=== PATIENT | female | born 1985 | race African-American/Black ===

== ENCOUNTER 2021-01-02 10:05 | Outpatient (CLI) | payer BC, SELFPAY ==
[2021-01-02 10:38] LABS: Hematocrit 45.8 % (37.0-47.0); Hemoglobin 14.7 g/dL (12.0-15.0); Mean Corpuscular HGB Conc 32.1 g/dl (32-36); Mean Corpuscular Hemoglobin 27.4 pg (26-34); Mean Corpuscular Volume 85.3 fl (80-100); Mean Platelet Volume 10.8 fl (7.4-10.4); Platelet Count Result 242 k/mm3 (150-375); Red Blood Count 5.37 M/mm3 (4.2-5.4); Red Cell Distribution Width 13.3 % (11.5-14.5); White Blood Count 7.2 K/mm3 (4.5-10.0)
== END 2021-01-02 10:06 | disposition home or self-care (01) ==
PROVIDERS: Visit Provider Student in an Organized Health Care Education/Training Program
DX: N92.0 Excessive and frequent menstruation with regular cycle (principal)
CPT/HCPCS: 36415; 85027

== ENCOUNTER 2021-02-08 07:57 | Outpatient (CLI) | payer BC, SELFPAY | END 2021-02-08 07:58 | disposition home or self-care (01) | LOC: ANHLAB 08:00 | PROVIDERS: Visit Provider Student in an Organized Health Care Education/Training Program | DX: Z01.818 Encounter for other preprocedural examination (principal); N92.0 Excessive and frequent menstruation with regular cycle | CPT/HCPCS: 36415; 86850; 86900; 86901 ==

== ENCOUNTER 2021-02-09 01:10 | Day surgery (SDC) | payer BC, SELFPAY ==
[2021-02-06 17:53] VITALS: BMI 32.2
--- NOTE | 2021-02-08 14:34 | WPDANESEPPF ---
Anes - Initial Pre Proc Eval Procedure: Operation Date: 02/09/21 07:30 Proposed Procedures p Laparoscopic Assisted Vaginal Hysterectomy, Bilateral Salpingectomy - Siobhan Dorantes MD Date/Time: 02/08/21 14:34 Surgeon: Siobhan Dorantes MD Pre Op Diagnosis: menorrhaghia Patient Data Age: 35 Gender: F Height: 1.7 m Weight: 93.44 kg Allergies Allergy/AdvReac Type Severity Reaction Status Date / Time No Known Allergies Allergy Verified 01/30/21 09:39 Home Medications Medication Instructions Recorded Confirmed Type cetirizine 10 mg capsule 20 mg PO DAILY cap 10/20/20 02/09/21 History ferrous sulfate 325 mg (65 mg 325 mg PO DAILY 10/20/20 02/09/21 History iron) tablet,delayed release folic acid 20 mg capsule 20 mg PO DAILY 10/20/20 02/09/21 History levothyroxine 200 mcg capsule 200 mcg PO DAILY 10/20/20 02/09/21 History vitamin B complex 1 tablet PO DAILY 10/20/20 02/09/21 History mometasone-formoterol [Dulera] 2 inh INHALATION DAILY 02/06/21 02/09/21 History Patient hx anesthesia problems: none Family hx anesthesia problems: none PMFSH Past Medical History Medical History Anemia Asthma History of use of contraceptive intrauterine device (IUD) inserted 2019 removed 2019 Hypothyroidism Irregular menses Obesity Surgical History Surgical History History of dilation and curettage History of endometrial ablation Family History Family History Mother Diabetes mellitus Hypertension Social History Social History Years smoked: 6 Smoking status: Current every day smoker Tobacco type: cigarettes Alcohol intake: never Drinks per week: 4 Substance use: never Substance use type: marijuana Spiritual care concerns: No Anes - Eval Final PreProcedure Day of Procedure 02/08/21 14:34 Patient weight: obese Heart: regular rate and rhythm Lungs: clear to auscultation and normal air movement Airway: Mallampati scale class II Neurological: alert and oriented Last oral intake: >/= 8 hours ASA classification: II Emergent: no Anesthetic plan: proceed Anesthesia type and monitoring: general ETT Informed Consent: The patient's anesthetic plan and its attendant risks and benefits were discussed with the patient/family/POA. Questions were solicited and answers provided to the satisfaction of the patient/family/POA.
--- NOTE | 2021-02-08 16:29 | PM.IMHP ---
H&P: HPI History of Present Illness Date/Time: 02/08/21 16:29 Patient is 35yo nulligravid woman with a long history of abnormal uterine bleeding who presents for a scheduled hysterectomy. Patient has failed multiple medical and other surgical modalities, inc. OCPs, IUD, and endometrial ablation. She has also had severe anemia in the past due to menorrhagia requiring multiple blood transfusion and iron transfusions. Patient does not desire future fertility. She desires definitive surgical management with a hysterectomy. In general, patient reports feeling well today without complaints. Chief Complaint: Abnormal uterine bleeding Review of Systems Review of Systems: All systems reviewed & are unremarkable except as noted in HPI and below Constitutional: Constitutional: Reports as per HPI, Reports no additional constitutional complaints, Denies chills, Denies fever(s), Denies headache(s) and Denies night sweats Eyes: Eyes: Reports as per HPI and Reports no additional eye complaints ENT: Reports system reviewed and no additional complaints, except as documented, Reports as per HPI, Reports Normal hearing present and Denies headache(s) Cardiovascular: Cardiovascular: Reports as per HPI, Reports no additional cardiovascular complaints, Denies chest pain and Denies dyspnea Respiratory: Respiratory: Reports as per HPI, Reports no additional respiratory complaints, Denies cough and Denies dyspnea Gastrointestinal: Gastrointestinal: Reports as per HPI, Reports no additional gastrointestinal complaints, Denies abdominal pain, Denies change in bowel habits, Denies change in stool character, Denies nausea and Denies vomiting Genitourinary: Genitourinary: Reports no additional female genitourinary complaints, Reports as per HPI, Denies abnormal vaginal bleeding, Denies genital lesions, Denies hot flashes, Denies dyspareunia, Denies pelvic pain, Denies sexual dysfunction, Denies urinary incontinence, Denies vaginal discharge, Denies vaginal dryness and Denies vaginal odor Musculoskeletal: Musculoskeletal: Reports no additional musculoskeletal complaints and Reports as per HPI Integumentary/Breasts: Skin/Breast: Reports system reviewed and no additional complaints, except as docu, Reports as per HPI, Denies breast pain and Denies nipple discharge Neurologic: Reports system reviewed and no additional complaints, except as documented, Reports as per HPI, Reports Normal hearing present and Denies headache(s) Psychiatric: Psychiatric: Reports no additional psychiatric complaints, Reports as per HPI, Denies anxiety and Denies depression Endocrine: Endocrine: Reports no additional endocrine complaints and Reports as per HPI Hematologic/Lymphatic: Hematologic/Lymphatic: Reports no additional hematologic/lymphatic complaints and Reports as per HPI Allergic/Immunologic: Allergic/Immunologic: Reports no additional allergic/immunologic complaints and Reports as per HPI PMFSH Past Medical History Medical History Anemia Asthma History of use of contraceptive intrauterine device (IUD) inserted 2018 removed 2019 Hypothyroidism Irregular menses Obesity Surgical History Surgical History History of dilation and curettage History of endometrial ablation Family History Family History Mother Diabetes mellitus Hypertension Social History Social History Years smoked: 6 Smoking status: Light tobacco smoker Tobacco type: cigarettes Alcohol intake: current Drinks per week: 4 Substance use: current Substance use type: marijuana Spiritual care concerns: No Meds Home Medications and Allergies Home Medications Medication Instructions Recorded Confirmed Type cetirizine 10 mg capsule 20 mg PO DAILY cap 10/20/20 02/06/21 History sergey
[2021-02-09] VITALS (13 sets, daily range): BP systolic 105–123; BP diastolic 51–77; PULSE 58–76; RESP 15–20; TEMP 36.3–37.7; O2SAT 92–100
[2021-02-09] MEDS: ACETAMINOPHEN 500 MG TABLET 1000 MG PO (06:55)
[2021-02-09] MEDS: LACTATED RINGERS 1,000 ML 30 ML IV CONT ×2 (07:05→12:06)
--- NOTE | 2021-02-09 07:09 | WPDHPUPDATE1 ---
History and Physical Update Update Date/Time: 02/09/21 07:09 History and Physical has been reviewed, including an updated exam of the patient. There are NO changes in the patient's condition. Risks, benefits, and alternatives have been discussed and questions answered. Patient agrees to proceed with procedure.
[2021-02-09] MEDS: KETOROLAC 15 MG/ML VIAL (*BKC) IV PUSH (07:10)
[2021-02-09] MEDS: ceFAZolin 2 GM/D5W 50 ML 2 GM/50 ML BAG IVPB (07:45)
[2021-02-09] MEDS: BUPIVACAINE/EPINEPHRINE 0.25% 10 ML VIAL 30 ML INFILTRATE (08:32)
[2021-02-09] MEDS: BACITRACIN OINTMENT 15 GM TUBE 1 APPLIC TOPICAL (11:39)
--- NOTE | 2021-02-09 12:17 | W.PM.PROC2 ---
Procedure Note - Detailed Date of Procedure 02/09/21 Pre-op Diagnosis Abnormal uterine bleeding Menorrhaghia Post-op Diagnosis same Procedure Performed Laparoscopic assisted vaginal hysterectomy bilateral salpingectomy Surgeon Siobhan Dorantes MD Supervisor [employer] [facility] Anesthesia general Findings omental adhesion to anterior abdominal wall; globular uterus, bilaterally distended fallopian tubes, normal appearing left ovary, right ovary with large cyst noted (ruptured during procedure) Description of Procedure The patient was taken to the operating room, where she self-transferred to the operating room table. She was placed in dorsal supine position. General anesthesia was administered without difficulty and found to be adequate. The patient was repositioned in dorsal lithotomy position with the use of Mickey stirrups and arms were carefully tucked at her side. She was prepped and draped in usual sterile fashion. A Barahona catheter was inserted using sterile technique. A bivalve speculum was then placed into the vagina. With good visualization of the cervix, the anterior lip of the cervix was grasped with a single-tooth tenaculum. The uterus was sounded to 8 cm. The cervix was then serially dilated to accommodate the insertion of a HUMI uterine manipulator, which was inserted into the uterus for use during the laparoscopic portion of the case. The tenaculum and speculum were removed. Steel Layer's gloves were changed. Attention was then turned to the patient's abdomen. A small amount of 0.25% Marcaine was injected in the infraumbilical region. A small infraumbilical incision was made with a scalpel. While tenting the abdominal wall up, a Veress needle was inserted into the abdominal cavity. Intra-abdominal confirmation was made with saline. Carbon dioxide tubing was connected to the Veress needle and insufflation was begun. The abdomen was insufflated to 15 mmHg. Once adequate pneumoperitoneum was achieved, the Veress needle was removed and a 5 mm Optiview trocar was then inserted into the abdominal cavity under direct visualization with the laparoscope. The trocar was removed. The laparoscope was reintroduced into the abdominal cavity through the sheath. For enhanced visualization and completion of the procedure, two additional lateral trocars were placed, one in the left lower quadrant and one in the right lower quadrant. A small amount of Marcaine was injected in the right lower quadrant. A small skin incision was made with a scalpel and a 5 mm trocar was placed under direct visualization. Similarly, Marcaine was injected in the left lower quadrant. A small skin incision was made and an additional 5 mm trocar was placed under direct visualization. The patient was placed in Trendelenburg position. An omental adhesion to the anterior abdominal wall was noted and obscuring view of pelvic structures. A 5mm LigaSure bipolar cautery and transection device was used to transect and detach adhesion. This allowed good visualization of pelvic structures and a quick survey of the abdominal and pelvic cavities was completed. The uterus appeared globular and slightly irregular in shape, however, otherwise, appeared to be grossly normal. The fallopian tubes were both extremely dilated. The end of the left fallopian tube was densely adherent to the ovary. The fimbriated end was not clearly demarcated as it was spread thin and adhered to the ovary. The ampullar and isthmic regions of the tube were manipulated so that the rest of the left ovary could be visualized. The visualized portions appeared grossly normal. The right fallopian tube was also noted to be dilated. The fimbriated end was, however, clearly seen. The tube was manipulated and the right ovary was seen beneath the tube. The ovary appeared normal, however, there was an ovarian cyst seen. During exploration of the tube and ovary, rupture of cyst occurred. No gross abnormalities of the intestines were noted and the l
--- NOTE | 2021-02-09 13:19 | SUR.PHASEI ---
[id number] sbar faxed floor notified
[2021-02-09] MEDS: IBUPROFEN IV 800 MG/200 ML 800 MG/200 ML BAG 200 MG (14:52)
[2021-02-09] MEDS: DEXTROSE 5%/0.45% SOD CHL 1,000 ML 125 ML (14:56)
[2021-02-09] MEDS: HYDROcodone/acetaminophen (*CRX) 10-325 MG TABLET 1 TAB PO ×2 (17:12→21:51)
[2021-02-09] MEDS: ONDANSETRON INJ 4 MG/2 ML VIAL IV PUSH (17:12)
[2021-02-09] MEDS: IBUPROFEN IV 800 MG/200 ML 800 MG/200 ML BAG 400 MG IVPB (21:52)
[2021-02-10 05:30] VITALS: BP 102/57; PULSE 66; RESP 15; TEMP 37.1; O2SAT 99
[2021-02-10] MEDS: IBUPROFEN 600 MG TABLET PO ×2 (05:33→13:42)
[2021-02-10] MEDS: HYDROcodone/acetaminophen (*CRX) 10-325 MG TABLET 1 TAB PO ×3 (05:34→13:41)
[2021-02-10 08:35] VITALS: BP 108/57; PULSE 62; RESP 20; TEMP 36.8; O2SAT 98
--- NOTE | 2021-02-10 09:07 | PM.GYNPNOP ---
BOMBSIGHT SPECIALIST - A/P Assessment and plan (1) S/P hysterectomy: Code(s): Z90.710 - Acquired absence of both cervix and uterus Status: Acute Assessment and Plan: POD#1 s/p LAVH/b/l salpingectomy donis catheter and packing removed this AM voiding trial continue pain medication ATC will add simethicone to regimen encourage OOB to chair and ambulation possible dc home this afternoon Postoperative Procedures: Procedures Operation Date: 02/09/21 07:30 Actual Procedure Side Surgeon p Laparoscopic Assisted Vaginal Hysterectomy, Bilateral Salpingectomy Bilateral Siobhan Dorantes MD Time Spent With Patient Time: Total time spent is greater than 50% in coordination of care (as documented) at patient's floor/unit and/or counseling patient: Time with patient: less than 15 minutes BOMBSIGHT SPECIALIST- PN:Subj Post-Op Subjective Date/time seen: 02/10/21 09:07 Patient seen at bedside. Doing reasonably well this AM. Donis catheter and vaginal packing removed this AM. Has not yet voided. No vaginal bleeding. Patient states that abd/pelvic pain is 8/10. Says that [place] has only made her sleepy. Denies any headache, chest pain, SOB, N/V. Tolerated PO diet last night. No flatus yet. States she feels as though she needs to, however, unable to pass. No ambulation. Exam Const: General: cooperative and no acute distress GI: Inspection: non-distended GI Palp: Yes Soft to palpation, Yes Tenderness to palpation present (GI) (appropriately tender), No Guarding due to palpation present (GI) and Yes Other GI palpation findings present (no rebound) Other: inc sites c/d/i : Other: deferred Extrem: Right lower extremity: no edema Left lower extremity: no edema Other: no calf tenderness, SCDs in place BOMBSIGHT SPECIALIST - PN: Obj Data Vital Signs Vital Signs: Vital Signs - 24 hr 02/09/21 12:10 02/09/21 12:25 02/09/21 12:40 Temperature 36.4 C Pulse Rate 69 58 L 73 Respiratory Rate 18 18 16 Blood Pressure 113/60 105/60 111/58 L Pulse Oximetry 100 100 100 02/09/21 12:55 02/09/21 13:10 02/09/21 13:25 Temperature Pulse Rate 62 61 62 Respiratory Rate 18 18 18 Blood Pressure 111/58 L 107/57 L 111/55 L Pulse Oximetry 100 95 100 02/09/21 13:40 02/09/21 13:55 02/09/21 14:10 Temperature Pulse Rate 61 60 64 Respiratory Rate 19 15 15 Blood Pressure 107/54 L 110/59 L 110/62 Pulse Oximetry 98 98 96 02/09/21 14:30 02/09/21 19:55 02/09/21 23:15 Temperature 36.3 C L 37.7 C H 37.1 C Pulse Rate 64 74 67 Respiratory Rate 15 16 16 Blood Pressure 118/62 119/51 L 107/62 Pulse Oximetry 96 96 98 02/10/21 05:30 Temperature 37.1 C Pulse Rate 66 Respiratory Rate 15 Blood Pressure 102/57 L Pulse Oximetry 99 Intake/Output Intake/Output: Intake & Output 02/07/21 02/08/21 02/09/21 02/10/21 23:59 23:59 23:59 23:59 Intake Total 3050 Output Total 500 400 Balance 2550 -400 Meds/Results Medications: Active Medications Generic Name Dose Route Start Last Admin Trade Name Freq PRN Reason Stop Dose Admin Hydrocodone Bitart/Acetaminophen 1 tab 02/09/21 14:19 Hydrocodone/Acetaminophen (*Crx) 5-325 Mg Tablet PO Q3H PRN Pain Rated 5 or Less Hydrocodone Bitart/Acetaminophen 1 tab 02/09/21 14:19 02/10/21 05:34 Hydrocodone/Acetaminophen (*Crx) 10-325 Mg Tablet PO 1 tab Q3H PRN Administration Pain Rated 6 or Greater Dextrose/Sodium Chloride 1,000 mls @ 125 mls/hr 02/09/21 14:19 02/10/21 07:14 Dextrose 5% Sodium Chloride 0.45% IV CONT Not Given .Q8H CHARITO Ibuprofen 800 mg in 200 mls @ 400 mls/hr 02/09/21 17:50 02/09/21 21:52 Caldolor 800 Mg/200 Ml IVPB 400 mls/hr Q6H PRN Administration Pain Rated 4-6 Ibuprofen 600 mg 02/09/21 14:19 02/10/21 05:33 Ibuprofen 600 Mg Tablet PO 600 mg Q6H PRN Administration Cramping Levothyroxine Sodium 200 mcg 02/10/21 06:30 Levothyroxine Sodium 100 Mcg Tablet PO DAILY@0630 CHARITO Naloxone HCl 0.1 mg 02/09/21 14:19
[2021-02-10] MEDS: SIMETHICONE 80 MG TAB.CHEW PO ×2 (09:41→13:41)
[2021-02-10] MEDS: LEVOTHYROXINE SODIUM 100 MCG TABLET 200 MCG PO (09:42)
--- NOTE | 2021-02-10 11:35 | WPDANESPN ---
Anes - Prog Note Post-Op Date/Time: 02/10/21 11:35 Cardiovascular status: normal Respiratory status: normal Airway patency: baseline Mental status: baseline Post-Op hydration status: normal Vital Signs: Last Vital Signs Temp 36.8 C 02/10/21 08:35 Pulse 62 02/10/21 08:35 Resp 20 02/10/21 08:35 BP 108/57 L 02/10/21 08:35 Pulse Ox 98 02/10/21 08:35 Pain Score (VAS): 0 I/O: Intake & Output 02/09/21 02/10/21 02/10/21 23:59 07:59 15:59 Intake Total 200 Output Total 425 400 Balance -225 -400 Post-procedural complaints: none Patient Feedback: Patient satisfied with anesthetic care.
[2021-02-10 12:04] VITALS: BP 110/52; PULSE 59; RESP 20; TEMP 37.1; O2SAT 100
--- NOTE | 2021-02-10 14:51 | PM.GYNPNOP ---
PHP WEBSITE DEVELOPER - A/P Postoperative Procedures: Procedures Operation Date: 02/09/21 07:30 Actual Procedure Side Surgeon p Laparoscopic Assisted Vaginal Hysterectomy, Bilateral Salpingectomy Bilateral Siobhan Dorantes MD Time Spent With Patient Time: Total time spent is greater than 50% in coordination of care (as documented) at patient's floor/unit and/or counseling patient: Time with patient: less than 15 minutes PHP WEBSITE DEVELOPER- PN:Subj Post-Op Subjective Date/time seen: 02/10/21 14:51 Per RN, patient has ambulated, voided twice, and passed flatus. She reports feeling better and is requesting dc home. PHP WEBSITE DEVELOPER - PN: Obj Data Vital Signs Vital Signs: Vital Signs - 24 hr 02/09/21 19:55 02/09/21 23:15 02/10/21 05:30 Temperature 37.7 C H 37.1 C 37.1 C Pulse Rate 74 67 66 Respiratory Rate 16 16 15 Blood Pressure 119/51 L 107/62 102/57 L Pulse Oximetry 96 98 99 02/10/21 08:35 02/10/21 12:04 Temperature 36.8 C 37.1 C Pulse Rate 62 59 L Respiratory Rate 20 20 Blood Pressure 108/57 L 110/52 L Pulse Oximetry 98 100 Intake/Output Intake/Output: Intake & Output 02/07/21 02/08/21 02/09/21 02/10/21 23:59 23:59 23:59 23:59 Intake Total 3050 Output Total 500 700 Balance 2550 -700 Meds/Results Medications: Active Medications Generic Name Dose Route Start Last Admin Trade Name Freq PRN Reason Stop Dose Admin Hydrocodone Bitart/Acetaminophen 1 tab 02/09/21 14:19 Hydrocodone/Acetaminophen (*Crx) 5-325 Mg Tablet PO Q3H PRN Pain Rated 5 or Less Hydrocodone Bitart/Acetaminophen 1 tab 02/09/21 14:19 02/10/21 13:41 Hydrocodone/Acetaminophen (*Crx) 10-325 Mg Tablet PO 1 tab Q3H PRN Administration Pain Rated 6 or Greater Dextrose/Sodium Chloride 1,000 mls @ 125 mls/hr 02/09/21 14:19 02/10/21 07:14 Dextrose 5% Sodium Chloride 0.45% IV CONT Not Given .Q8H CHARITO Ibuprofen 800 mg in 200 mls @ 400 mls/hr 02/09/21 17:50 02/09/21 21:52 Caldolor 800 Mg/200 Ml IVPB 400 mls/hr Q6H PRN Administration Pain Rated 4-6 Ibuprofen 600 mg 02/09/21 14:19 02/10/21 13:42 Ibuprofen 600 Mg Tablet PO 600 mg Q6H PRN Administration Cramping Levothyroxine Sodium 200 mcg 02/10/21 06:30 02/10/21 09:42 Levothyroxine Sodium 100 Mcg Tablet PO 200 mcg DAILY@0630 CHARITO Administration Naloxone HCl 0.1 mg 02/09/21 14:19 Naloxone Hcl 0.4 Mg/Ml Vial IV PUSH Q2M PRN Respiratory rate less than 10 Ondansetron HCl 4 mg 02/09/21 14:19 02/09/21 17:12 Ondansetron Inj 4 Mg/2 Ml Vial IV PUSH 4 mg Q6H PRN Administration Nausea And Vomiting Simethicone 80 mg 02/10/21 09:00 02/10/21 13:41 Simethicone 80 Mg Tab.Chew PO 80 mg QID CHARITO Administration
--- NOTE | 2021-02-10 14:57 | PM.DS ---
DS: Admitting Diagnosis Admitting Diagnosis Admitting Diagnosis: Abnormal uterine bleeding DS: Summary Hospital Course Hospital Course: Uncomplicated Time Spent with Patient Time attestation: Total time spent providing and/or coordinating discharge services: DS: Data Data Completed and Pending Pending studies at discharge: Pending at discharge 02/09/21 11:15 Surgical [PTH] Routine Discharge Plan Discharge Patient Disposition: Home, Self-Care Discharge Instructions: Call office ([phone]) to schedule the following appointment: 1. Postoperative/wound check in 2 weeks. You may take Ibuprofen 600mg every 6 hours as needed for pain. I have sent a prescription for a stronger pain medication, [place], to your pharmacy. You may take this as prescribed for breakthrough pain (pain that is not controlled with Ibuprofen). No driving for at least two weeks. You also may not drive while taking narcotics. Pain medication may make you constipated. It may be helpful to take an [id number] stool softener, such as Colace and/or Senokot, along with the pain medication to help lessen constipation. Call office or go to ED for pain not controlled with medication, headache, chest pain, shortness of breath, fever, chills, persistent nausea or vomiting, severe abdominal pain, heavy vaginal bleeding >2 pads/hour, foul vaginal discharge or odor, any redness near incision, severe pain, or pus or drainage from incision site. Patient Instructions: Laparoscopic Hysterectomy (DC) Stand Alone Forms: General Discharge Instructions Follow-up/Referrals: Siobhan Dorantes MD [Physician] - Discharge Medications: New hydrocodone-acetaminophen 5-325 mg Tablet 1 - 2 tablet PO Q4-6H PRN (Reason: Pain Rated 5 Or Less) Qty: 30 RF: 0 Continued levothyroxine 200 mcg capsule 200 mcg PO DAILY RF: 0 ferrous sulfate 325 mg (65 mg iron) tablet,delayed release (DR/EC) 325 mg PO DAILY RF: 0 Zyrtec 10 mg capsule 20 mg PO DAILY RF: 0 folic acid 20 mg capsule 20 mg PO DAILY RF: 0 vitamin B complex [B Complex-Vitamin B12] Tablet 1 tablet PO DAILY RF: 0 Dulera 100-5 mcg/actuation HFA aerosol inhaler 2 inh INHALATION DAILY RF: 0
== END 2021-02-10 15:49 | disposition home or self-care (01) ==
LOC: ANHSURGERY 06:09 → ANHOB2 02-10 14:57
PROVIDERS: Visit Provider Student in an Organized Health Care Education/Training Program
PROC: 0UT9FZZ Resection of Uterus, Via Natural or Artificial Opening With Percutaneous Endoscopic Assistance (ICD-10-PCS; CPT 58552; principal; 2021-02-09 07:30)
DX: N92.0 Excessive and frequent menstruation with regular cycle (principal); N73.6 Female pelvic peritoneal adhesions (postinfective); D25.2 Subserosal leiomyoma of uterus; N80.0 Endometriosis of uterus; N72 Inflammatory disease of cervix uteri; N83.201 Unspecified ovarian cyst, right side; D64.9 Anemia, unspecified; J45.909 Unspecified asthma, uncomplicated; E03.9 Hypothyroidism, unspecified; E66.9 Obesity, unspecified; Z68.32 Body mass index [BMI] 32.0-32.9, adult; F17.210 Nicotine dependence, cigarettes, uncomplicated
CPT/HCPCS: 58552; 88307; 99199; A9270; J0330; J0690; J1100; J1170; J1741; J1885; J2250; J2405; J2704; J2710; J3010; J7030; J7120